=== PATIENT | female | born 1940 | race Caucasian/White ===

== ENCOUNTER → 2016-06-05 | Outpatient (CLI) | payer MEDICARE, BC | LOC: MW.CHFP 08:00 | CPT/HCPCS: G0463 ==

== ENCOUNTER → 2016-06-13 | Outpatient (CLI) | payer MEDICARE, BC ==
--- NOTE | 2016-06-17 10:59 | CR ---
EXAM DATE: 06/13/16 PATIENT'S AGE: 76 Patient: ANNETTA SY Facility: [place], [place] Site . Site : 1940 Study: XRay Chest [id number]/9/2017 3:36:15 PM Ordering Physician: Jessenia Cruz Final Report: HISTORY: Cough. Findings: PA and lateral chest the breasts are compared with 09 January 2016. There is stable mild elevation right hemidiaphragm. The cardiac silhouette is normal. No cephalization. No consolidation or pleural effusion is seen. Peridiscal spurring seen within thoracic spine. Impression: 1. Stable mild elevation of right hemidiaphragm. 2. No acute cardiopulmonary disease or infiltrate. Dictated by Alicia Benitez MD @ Jun 14 2016 11:41PM (Electronic Signature) Report Signed by Proxy and Original Signed Document filed in the Medical Record. VIK
== END ==
LOC: MW.CHOBGYN 15:01
PROVIDERS: ATTEND Nurse Practitioner Women's Health
DX: R05 Cough (principal); J18.1 Lobar pneumonia, unspecified organism
CPT/HCPCS: 36415; 71020; 71020-26; 85025; 87070; 87205; 87804; 99214

== ENCOUNTER → 2016-06-18 | Outpatient (CLI) | payer MEDICARE, BC ==
--- NOTE | 2016-06-20 11:49 | MY ---
EXAMINATION: Left digital mammography utilizing CAD with targeted ultrasound. HISTORY: Cyst, pain. Comparison dated 09/01/2015. FINDINGS: There is a subpectoral silicone implant noted. There is no abnormal mass or calcification identified. No skin thickening. No focal irregularity within the region of concern. There is a lymp h node within the upper outer quadrant near the region of concern, otherwise unremarkable. There are a few cystic collections noted within the upper outer quadrant, however, these appear subcapsular. No suspicious abnormality identified. IMPRESSION: BI-RADS category II - Benign finding. Continued screening according to ACR-ACS guideli patti suggested. THE FALSE-NEGATIVE RATE OF MAMMOGRAM IS APPROXIMATELY 10%. MANAGEMENT OF A PALPABLE ABNORMALITY MUST BE BASED UPON CLINICAL GROUNDS. SENSITIVITY FOR DETECTION OF ABNORMALITIES IN DENSE BREASTS IS LOW. NOTE: A letter will be sent to the patient regarding findings. [facility] -- [place] Ortega [phone] - FAX [phone]
--- NOTE | 2016-06-21 20:08 | US ---
EXAMINATION: Left digital mammography utilizing CAD with targeted ultrasound. HISTORY: Cyst, pain. Comparison dated 09/01/2015. FINDINGS: There is a subpectoral silicone implant noted. There is no abnormal mass or calcification identified. No skin thickening. No focal irregularity within the region of concern. There is a lymp h node within the upper outer quadrant near the region of concern, otherwise unremarkable. There are a few cystic collections noted within the upper outer quadrant, however, these appear subcapsular. No suspicious abnormality identified. IMPRESSION: BI-RADS category II - Benign finding. Continued screening according to ACR-ACS guideli patti suggested. THE FALSE-NEGATIVE RATE OF MAMMOGRAM IS APPROXIMATELY 10%. MANAGEMENT OF A PALPABLE ABNORMALITY MUST BE BASED UPON CLINICAL GROUNDS. SENSITIVITY FOR DETECTION OF ABNORMALITIES IN DENSE BREASTS IS LOW. NOTE: A letter will be sent to the patient regarding findings. [facility] -- [place] [phone] - FAX [phone]
== END ==
LOC: MW.MAM 13:08
PROVIDERS: ATTEND Emergency Medicine
DX: N60.02 Solitary cyst of left breast (principal); N64.4 Mastodynia
CPT/HCPCS: 76641; G0206

== ENCOUNTER → 2016-07-24 | Outpatient (CLI) | payer MEDICARE, BC | END | disposition home or self-care (01) | LOC: MW.LAB 08:36 | PROVIDERS: ATTEND Internal Medicine Interventional Cardiology | DX: E78.5 Hyperlipidemia, unspecified (principal); R82.90 Unspecified abnormal findings in urine | CPT/HCPCS: 36415; 80061; 81001; 87086 ==

== ENCOUNTER → 2016-07-24 | Outpatient (CLI) | payer MEDICARE, BC | END | disposition home or self-care (01) | LOC: MW.CHFP 09:46 | PROVIDERS: ATTEND Family Medicine | DX: R82.90 Unspecified abnormal findings in urine (principal) | CPT/HCPCS: 81001; 87086 ==

== ENCOUNTER → 2016-08-13 | Outpatient (CLI) | payer MEDICARE, BC ==
--- NOTE | 2016-08-13 08:42 | PCM.PRNOTE ---
- Free Text/Narrative Note: Lexiscan Indication chest pain Patient was supervised today during infusion portion of the stress test. The patient received Regadenoson 0.4 mg IV and nuclear agent using standard protocol. Sestamibi Tm99 25 Mci was gievn afterwards Baseline blood pressure is 157/80 with a heart rate 65 EKG sinus rhythm without ST abnormalities Vital signs at injection: Peak blood pressure 157/74 with a heart rate of 78 Vital signs at 4 minutes post injection: Peak blood pressure 156/68 with a heart rate of 73 EKG sinus rhythm without further ST changes Patient complains of mild nausea spontaneously resolved Adverse effects from Ene scan none Test done due to end of protocol Impression 1. electrocardiographically nondiagnostic for ischemia due to chemical protocol 2. nuclear imaging pending
--- NOTE | 2016-08-13 11:18 | NM ---
EXAMINATION: Nuclear medicine myocardial perfusion study HISTORY: Coronary artery disease. PROCEDURE: Following intravenous administration of 0.4 mg of Lexiscan and 27.5 mCi of technetium 99m sestamib i, stress and rest SPECT images including gating imaging was performed. FINDINGS: Stress and rest myocardial SPECT images demonstrates a trace decreased perfusion along the anterior wall, midportion. This most likely represents breast attenuation artifact. Review of gated images demonstrates normal wall motion, contractility and wall thickening. The left ventricular ejection fraction is 67 %. The left ventricular chamber size is normal. IMPRESSION: 1. No definite evidence of myocardial ischemia. 2. Normal ventricular chamber size and function with ejection fraction of 67 %.
== END ==
LOC: MW.NM 08:04
PROVIDERS: ATTEND Internal Medicine Interventional Cardiology
DX: I25.10 Atherosclerotic heart disease of native coronary artery without angina pectoris (principal); Z13.6 Encounter for screening for cardiovascular disorders
CPT/HCPCS: 78451; 93017; A9500; J2785

== ENCOUNTER 2017-06-15 06:06 | Observation (INO) | payer MEDICARE, BC ==
[2017-06-15] MEDS ORDERED: Sodium Chloride 0.9% 2.5 ML Syringe FLUSH PRN (06:10)
[2017-06-15] MEDS ORDERED: Sodium Chloride 0.9% 10 ML Syringe FLUSH PRN (06:10)
--- NOTE | 2017-06-15 06:11 | EDM.PDOC ---
ED HPI GENERAL MEDICAL PROBLEM - General Chief Complaint: Syncope Stated Complaint: AMBULANCE Time Seen by Provider: 06/15/17 06:09 - History of Present Illness INITIAL COMMENTS - FREE TEXT/NARRATIVE: HISTORY AND PHYSICAL: History of present illness: The patient is a 77-year-old female who follows in our family practice clinic and has a history of skn-sqodsim-oexbyddlm diabetes hypercholesterolemia hypertension coronary artery disease with a stent 10 years ago, double mastectomy and follows in our family practice clinic; she presents via EMS after having diarrhea all day yesterday and having a brief syncopal event this morning. The patient states that yesterday she had diarrhea all day which is watery but not black or bloody and she is not very good with her hydration as she drinks soda and tea along with water. She said she went to bed and she woke feeling like her heart was beating very fast and it was pounding and that only lasted several minutes. After this stopped she got up to go into the other room of the house and felt lightheaded and generalized weakness and the next thing she recalls is being on the floor on her back. She says she was not unconscious for a long period of time and when she woke she did not have any head neck or back pain although she does say that she has chronic back pain which is not new or different tonight. She doesn't have any abdominal pain she's not nauseated and she's had no vomiting. She's had no fever chills but has had a cough. Currently in the ED she feels very drained and weak and she felt the same way when she got up and felt lightheaded. Patient currently denies any extremity complaints and has no neurosensory changes in her extremities. She currently says she is not feeling like her heart is beating fast and she is currently not having any chest pain she just feels weak. She says that along with the diarrhea she'll get some cramping prior to these episodes. Review of systems: As per history of present illness and below otherwise all systems reviewed and negative. Past medical history: As per history of present illness and as reviewed below otherwise noncontributory. Surgical history: As per history of present illness and as reviewed below otherwise noncontributory. Social history: No reported history of drug or alcohol abuse. Family history: As per history of present illness and as reviewed below otherwise noncontributory. Physical exam: Gen.: Well-developed well-nourished female who is nontoxic and moves all extremities easily and speaks clearly and moves easily in the bed. Vital signs are noted by me. HEENT: Atraumatic, normocephalic, pupils reactive, negative for conjunctival pallor or scleral icterus, mucous membranes tacky, throat clear, neck supple, nontender, trachea midline. There are no scalp defects or deformities and no soft tissue swelling is appreciated. There are no midline step-offs tenderness defects of the cervical spine Lungs: Clear to auscultation, breath sounds equal bilaterally, chest nontender. Heart: S1S2, regular, negative for clicks, rubs, or JVD. Abdomen: Soft, nondistended, nontender. Negative for masses or hepatosplenomegaly. There is a small soft umbilical hernia which is nontender Negative for costovertebral tenderness. Bowel sounds are slightly hyperactive Pelvis: Stable nontender. There is no lateral hip tenderness and the patient has full range of motion at her hips. Genitourinary: Deferred. Rectal: Deferred. Extremities: Atraumatic with full range of motion of all extremities with the exception of the dorsal aspect of the left third digit where there is a superficial laceration/abrasion seen without bony deformity. The patient is able to range of motion of this digit without deficits. The legs are, negative for cords or calf pain. Neurovascular unremarkable. Neuro: Awake, alert, oriented. Cranial nerves II through XII unremarkable. Cerebellum unremarkable. Motor and sensory unremarkable throughout. Exam nonfocal. Skin: There is no diaphoresis turgor is normal and there is no gross evidence of any rashes or lesions Back: There are no midline step-offs tenderness to the thoracic or lumbar spine no posterior rib or posterior pelvis tenderness and no visible evidence of any soft tissue injuries such as abrasions ecchymosis or erythema. Diagnostics: EKG CBC CMP troponin magnesium level UA TSH influenza swab chest x-ray CT scan of the head If The patient produces a stool I will send it to the lab for study Therapeutics: IV O2 monitor gentle IV fluids wound care to finger 0637: Case was discussed with our hospitalist Dr. Redding. He accepts the patient for observation admission and he is aware that the imaging and labs are pending. He is coming in to the hospital to see another patient so he will swing by and see this patient but he agrees to the admission. The patient was also made aware that the plan would be for admission despite testing results. She is comfortable with this care plan. 0700: Case was endorsed to Dr. Hoskins to follow up the pending lab tests and imaging and disposition the patient as an observation pending those testing results. She will recontact Dr. Redding without any changes in this care plan Impression: Brief syncopal event, diarrhea Definitive disposition and diagnosis as appropriate pending reevaluation and review of above. - Related Data Allergies Allergy/AdvReac Type Severity Reaction Status Date / Time cyclobenzaprine HCl Allergy Giddiness Verified 06/15/17 06:16 [From Flexeril] Adhesive from 'rubber type Allergy Redness Uncoded 06/15/17 06:16 bandages Home Meds: Home Meds Atenolol/Chlorthalidone [Atenolol-Chlorthalidone 50-25] 1 tab PO DAILY 03/08/15 [History] FLUoxetine HCl [Fluoxetine HCl] 1 tab PO DAILY 03/08/15 [History] Omeprazole [Prilosec] 1 tab PO DAILY 03/08/15 [History] Potassium Chloride [Klor-Con M20] 10 tab PO DAILY 03/08/15 [History] Simvastatin 1 tab PO DAILY 03/08/15 [History] metFORMIN [Glucophage] 1 tab PO BIDMEALS 03/08/15 [History] Lisinopril 0 mg PO DAILY 06/15/17 [History] Past Medical History Other Respiratory History: History of smoking, Chronic sinusitis, have had Bronchitis' Other Gastrointestinal History: GERD been better recently, Hx: fatty liver non- alchol related Other Musculoskeletal History: Chronic low back pain Other Neuro History: Sinus related headaches - Past Surgical History Other Musculoskeletal Surgeries/Procedures:: Bilateral total knee replacements, hx: BAck surgery Other Oncologic Surgeries/Procedures: Darci breast mastectomy, darci breast reconstruction with implants Social & Family History - Tobacco Use Smoking Status *Q: Former Smoker - Recreational Drug Use Recreational Drug Use: No Drug Use in Last 12 Months: No ED ROS GENERAL - Review of Systems Review Of Systems: ROS reveals no pertinent complaints other than HPI. ED EXAM, GENERAL - Physical Exam Exam: See Below (See dictation) Course - Vital Signs Last Recorded V/S: Last Vital Signs Temp 36.4 C 06/15/17 06:06 Pulse 86 06/15/17 06:29 Resp 19 06/15/17 06:29 BP 144/71 H 06/15/17 06:29 Pulse Ox 96 06/15/17 06:29 - Orders/Labs/Meds Orders: Active Orders 24 hr Category Date Time Status Patient Status [ADT] Stat ADT 06/15/17 06:36 Active Cardiac Monitoring [RC] . DIRECTED Care 06/15/17 06:09 Active Communication Order [RC] STAT Care 06/15/17 06:10 Active Communication Order [RC] STAT Care 06/15/17 06:11 Active EKG Documentation Completion [RC] STAT Care 06/15/17 06:09 Active Oxygen Therapy, ED [RC] ASDIRECTED Care 06/15/17 06:09 Active Pulse Oximetry [RC] ASDIRECTED Care 06/15/17 06:09 Active Chest 1V Frontal [CR] Stat Exams 06/15/17 06:10 Ordered Head wo Cont [CT] Stat Exams 06/15/17 06:10 Taken COMPREHENSIVE METABOLIC PN,CMP [CHEM] Stat Lab 06/15/17 06:21 Received MAGNESIUM [CHEM] Stat Lab 06/15/17 06:21 Received TROPONIN I [CHEM] Stat Lab 06/15/17 06:21 Received TSH [CHEM] Stat Lab 06/15/17 06:21 Received UA W/MICROSCOPIC [URIN] Stat Lab 06/15/17 06:10 Ordered Sodium Chloride 0.9% [Normal Saline] 500 ml Med 06/15/17 06:15 Active IV STAT Sodium Chloride 0.9% [Saline Flush] Med 06/15/17 06:10 Active 10 ml FLUSH ASDIRECTED PRN Sodium Chloride 0.9% [Saline Flush] Med 06/15/17 06:10 Active 2.5 ml FLUSH ASDIRECTED PRN Saline Lock Insert [OM.PC] Stat Oth 06/15/17 06:09 Ordered Medication Orders Sodium Chloride (Normal Saline) 500 mls @ 999 mls/hr IV STAT BEN Last Admin: 06/15/17 06:21 Dose: 999 mls/hr Sodium Chloride (Saline Flush) 10 ml FLUSH ASDIRECTED PRN PRN Reason: Keep Vein Open Sodium Chloride (Saline Flush) 2.5 ml FLUSH ASDIRECTED PRN PRN Reason: Keep Vein Open Labs: Laboratory Tests 06/15/17 Range/Units 06:21 WBC 9.78 (4.0-11.0) K/uL RBC 4.61 (4.30-5.90) M/uL Hgb 13.5 (12.0-16.0) g/dL Hct 41.9 (36.0-46.0) % MCV 90.9 (80.0-98.0) fL MCH 29.3 (27.0-32.0) pg MCHC 32.2 (31.0-37.0) g/dL RDW Std Deviation 46.6 (28.0-62.0) fl RDW Coeff of Daily 14 (11.0-15.0) % Plt Count 235 (150-400) K/uL MPV 10.20 (7.40-12.00) fL Neut % (Auto) 66.9 (48.0-80.0) % Lymph % (Auto) 25.2 (16.0-40.0) % [place] % (Auto) 5.8 (0.0-15.0) % Eos % (Auto) 1.6 (0.0-7.0) % Baso % (Auto) 0.5 (0.0-1.5) % Neut # (Auto) 6.5 H (1.4-5.7) K/uL Lymph # (Auto) 2.5 H (0.6-2.4) K/uL [place] # (Auto) 0.6 (0.0-0.8) K/uL Eos # (Auto) 0.2 (0.0-0.7) K/uL Baso # (Auto) 0.1 (0.0-0.1) K/uL Nucleated RBC % 0.0 /100WBC Nucleated RBCs # 0 K/uL Meds: Medications Generic Name Dose Route Start Last Admin Trade Name Freq PRN Reason Stop Dose Admin Sodium Chloride 500 mls @ 999 mls/hr 06/15/17 06:15 06/15/17 06:21 Normal Saline IV 999 mls/hr STAT BEN Administration Sodium Chloride 10 ml 06/15/17 06:10 Saline Flush FLUSH ASDIRECTED PRN Keep Vein Open Sodium Chloride 2.5 ml 06/15/17 06:10 Saline Flush FLUSH ASDIRECTED PRN Keep Vein Open Discontinued Medications Generic Name Dose Route Start Last Admin Trade Name Freq PRN Reason Stop Dose Admin Bacitracin 1 dose 06/15/17 06:12 06/15/17 06:24 Bacitracin Oint 1 Gm TOP 06/15/17 06:13 1 dose ONETIME ONE Administration Departure - Departure Time of Disposition: 07:15 Disposition: Refer to Observation Condition: Good Clinical Impression: Syncope Qualifiers: Syncope type: unspecified Qualified Code(s): R55 - Syncope and collapse Diarrhea Qualifiers: Diarrhea type: unspecified type Qualified Code(s): R19.7 - Diarrhea, unspecified - Discharge Information Forms: ED Department Discharge - My Orders Last 24 Hours: My Active Orders 06/15/17 06:09 Cardiac Monitoring [RC] . DIRECTED EKG Documentation Completion [RC] STAT Oxygen Therapy, ED [RC] ASDIRECTED Pulse Oximetry [RC] ASDIRECTED Saline Lock Insert [OM.PC] Stat 06/15/17 06:10 Communication Order [RC] STAT Chest 1V Frontal [CR] Stat Head wo Cont [CT] Stat UA W/MICROSCOPIC [URIN] Stat Sodium Chloride 0.9% [Saline Flush] 10 ml FLUSH ASDIRECTED PRN Sodium Chloride 0.9% [Saline Flush] 2.5 ml FLUSH ASDIRECTED PRN 06/15/17 06:11 Communication Order [RC] STAT 06/15/17 06:15 Sodium Chloride 0.9% [Normal Saline] 500 ml IV STAT 06/15/17 06:21 COMPREHENSIVE METABOLIC PN,CMP [CHEM] Stat MAGNESIUM [CHEM] Stat TROPONIN I [CHEM] Stat TSH [CHEM] Stat 06/15/17 06:36 Patient Status [ADT] Stat - Assessment/Plan Last 24 Hours: My Active Orders 06/15/17 06:09 Cardiac Monitoring [RC] . DIRECTED EKG Documentation Completion [RC] STAT Oxygen Therapy, ED [RC] ASDIRECTED Pulse Oximetry [RC] ASDIRECTED Saline Lock Insert [OM.PC] Stat 06/15/17 06:10 Communication Order [RC] STAT Chest 1V Frontal [CR] Stat Head wo Cont [CT] Stat UA W/MICROSCOPIC [URIN] Stat Sodium Chloride 0.9% [Saline Flush] 10 ml FLUSH ASDIRECTED PRN Sodium Chloride 0.9% [Saline Flush] 2.5 ml FLUSH ASDIRECTED PRN 06/15/17 06:11 Communication Order [RC] STAT 06/15/17 06:15 Sodium Chloride 0.9% [Normal Saline] 500 ml IV STAT 06/15/17 06:21 COMPREHENSIVE METABOLIC PN,CMP [CHEM] Stat MAGNESIUM [CHEM] Stat TROPONIN I [CHEM] Stat TSH [CHEM] Stat 06/15/17 06:36 Patient Status [ADT] Stat
[2017-06-15] MEDS ORDERED: Bacitracin Oint 1 GM U/D Packet TOP ONE (06:12)
[2017-06-15] MEDS ORDERED: Sodium Chloride 0.9% 500 ML IV SCH (06:15)
[2017-06-15 07:21] LABS: CHLORIDE,CL 104 mmol/L (98-107); SODIUM,NA 141 mmol/L (136-145)
--- NOTE | 2017-06-15 07:43 | PCM.HP ---
H&P History of Present Illness - General Date of Service: 06/15/17 Admit Problem/Dx: Admission Diagnosis/Problem Admission Diagnosis/Problem Syncope Source of Information: Patient History Limitations: Reports: No Limitations - History of Present Illness Initial Comments - Free Text/Narative: 77-year-old female presenting to the emergency department by EMS after a unwitnessed syncopal episode with past medical history of hypertension, hyperlipidemia, CAD stent 10 years ago, GERD, bilateral masectomy and depression. She states that she had diarrhea throughout the day yesterday and in general felt fatigued with some lightheadedness. At approximately 0500 this morning she woke with what she feels was her "heart racing". She got up to check her blood sugar thinking that she may be hypoglycemic. States that her blood sugar was fine but then on returning to her bed "blacked out". She woke up on the floor feeling somewhat disoriented and weak. She subsequently called ambulance to be taken to the emergency department for further assessment. She denies any chest pain, palpitations, or shortness of breath prior to or after the syncopal event. Event was unwitnessed and she states that she did not notice any significant focal neurologic deficits other than just generalized weakness. She denies any nausea, vomiting, fever, chills, sore throat, abdominal pain, leg pain or swelling. Patient does have a history of hypertension, hyperlipidemia and coronary artery disease with stent placed 10 years ago. She is not on any blood thinners. She has never had similar episode in the past and has no history of TIA, stroke, or seizures. Patient [place]. Emergency department: CBC, CMP, and initial troponin were unremarkable. Magnesium was low at 1.3 and TSH was elevated at 7.54. She denies any history of hypothyroidism. Influenza was negative and urinalysis as well as chest x-ray were unremarkable. CT head unremarkable. EKG showed no acute signs of ischemia. Patient was admitted for syncope. - Related Data Allergies/Adverse Reactions: Allergies Allergy/AdvReac Type Severity Reaction Status Date / Time cyclobenzaprine HCl Allergy Giddiness Verified 06/15/17 06:16 [From Flexeril] Adhesive from 'rubber type Allergy Redness Uncoded 06/15/17 06:16 bandages Home Medications: Home Meds Atenolol/Chlorthalidone [Atenolol-Chlorthalidone 50-25] 1 tab PO DAILY 03/08/15 [History] FLUoxetine HCl [Fluoxetine HCl] 1 tab PO DAILY 03/08/15 [History] Omeprazole [Prilosec] 1 tab PO DAILY 03/08/15 [History] Potassium Chloride [Klor-Con M20] 10 tab PO DAILY 03/08/15 [History] Simvastatin 1 tab PO DAILY 03/08/15 [History] metFORMIN [Glucophage] 1 tab PO BIDMEALS 03/08/15 [History] Lisinopril 0 mg PO DAILY 06/15/17 [History] Past Medical History HEENT History: Reports: Cataract, Impaired Vision Cardiovascular History: Reports: Stents Other Respiratory History: History of smoking, Chronic sinusitis, have had Bronchitis' Other Gastrointestinal History: GERD been better recently, Hx: fatty liver non- alchol related CARD SETTER History: Reports: , Other (See Below) Other OB/BYN History: mastectomy Other Musculoskeletal History: Chronic low back pain Other Neuro History: Sinus related headaches Endocrine/Metabolic History: Reports: Diabetes, Type II - Past Surgical History Other Musculoskeletal Surgeries/Procedures:: Bilateral total knee replacements, hx: BAck surgery Other Oncologic Surgeries/Procedures: Darci breast mastectomy, darci breast reconstruction with implants Social & Family History - Family History Family Medical History: Noncontributory - Tobacco Use Smoking Status *Q: Former Smoker - Recreational Drug Use Recreational Drug Use: No Drug Use in Last 12 Months: No H&P Review of Systems - Review of Systems: Review Of Systems: See Below General: Denies: Fever, Chills, Weakness, Fatigue HEENT: Denies: Headaches, Sore Throat Pulmonary: Denies: Shortness of Breath, Pleuritic Chest Pain, Cough Cardiovascular: Denies: Chest Pain, Palpitations, Edema Gastrointestinal: Reports: Diarrhea. Denies: Abdominal Pain, Black Stool, Bloody Stool, Nausea, Vomiting Genitourinary: Denies: Dysuria, Hematuria Musculoskeletal: Denies: Neck Pain, Leg Pain Skin: Denies: Cyanosis Psychiatric: Reports: Depression. Denies: Confusion Neurological: Denies: Confusion, Dizziness, Headache Exam - Exam Exam: See Below - Vital Signs Vital Signs: Last Vital Signs Temp 97.6 F 06/15/17 06:06 Pulse 85 06/15/17 07:02 Resp 16 06/15/17 07:02 BP 154/80 H 06/15/17 07:02 Pulse Ox 94 L 06/15/17 07:02 Weight: 97.522 kg - Exam Quality Assessment: DVT Prophylaxis General: Alert, Oriented, Cooperative HEENT: Conjunctiva Clear, EACs Clear, EOMI, Hearing Intact, Mucosa Moist & [place] , Nares Patent, Normal Nasal Septum, Posterior Pharynx Clear, PERRLA Neck: Supple, Trachea Midline, 2 Lungs: Clear to Auscultation, Normal Respiratory Effort Cardiovascular: Regular Rate, Regular Rhythm, Normal S1, Normal S2, Systolic Murmur GI/Abdominal Exam: Normal Bowel Sounds, Soft, Non-Tender, No Organomegaly, No Distention (Female) Exam: Deferred Rectal (Female) Exam: Deferred Back Exam: Normal Inspection Extremities: Normal Inspection, Non-Tender, No Pedal Edema, Normal Capillary Refill Peripheral Pulses: 2+: Radial (L), Radial (R), Posterior Tibial (L), Posterior Tibial (R), Dorsalis Pedis (L), Dorsalis Pedis (R) Skin: Warm, Dry, Intact Neurological: Cranial Nerves Intact Neuro Extensive - Mental Status: Alert, Oriented x3, Normal Mood/Affect, Normal Cognition Neuro Extensive - Motor, Sensory, Reflexes: CN II-XII Intact Psychiatric: Alert, Normal Affect, Normal Mood - Patient Data Lab Results Last 24 hrs: Laboratory Results - last 24 hr 06/15/17 Range/Units 06:48 Urine Color YELLOW Urine Appearance CLEAR Urine pH 5.5 (5.0-8.0) Ur Specific [place] 1.025 (1.001-1.035) Urine Protein NEGATIVE (NEGATIVE) mg/dL Urine Glucose (UA) NEGATIVE (NEGATIVE) mg/dL Urine Ketones NEGATIVE (NEGATIVE) mg/dL Urine Occult Blood TRACE-INTACT (NEGATIVE) Urine Nitrite NEGATIVE (NEGATIVE) Urine Bilirubin NEGATIVE (NEGATIVE) Urine Urobilinogen 0.2 (<2.0) EU/dL Ur Leukocyte Esterase TRACE (NEGATIVE) Urine RBC 0-3 (0-2/HPF) Urine WBC 1-3 (0-5/HPF) Ur Epithelial Cells OCCASIONAL (NONE-FEW) Urine Bacteria FEW (NEGATIVE) Result Diagrams: 06/15/17 06:21 06/15/17 06:21 *Q Meaningful Use (ADM) - VTE *Q VTE Criteria *Q: - Stroke *Q Stroke Criteria *Q: - AMI *Q AMI Criteria *Q: - Problem List (1) Presence of stent in coronary artery in patient with coronary artery disease SNOMED Code(s): 431038479 ICD Code: I25.10 - ATHSCL HEART DISEASE OF [place] CORONARY ARTERY W/O ANG PCTRS; Z95.5 - PRESENCE OF CORONARY ANGIOPLASTY IMPLANT AND GRAFT Status: Chronic Priority: Medium Current Visit: Yes (2) HTN (hypertension) SNOMED Code(s): 44077096 ICD Code: I10 - ESSENTIAL (PRIMARY) HYPERTENSION Status: Chronic Priority : Medium Current Visit: Yes Qualifiers: Hypertension type: unspecified Qualified Code(s): I10 - Essential (primary ) hypertension (3) HLD (hyperlipidemia) SNOMED Code(s): 50765589 ICD Code: E78.5 - HYPERLIPIDEMIA, UNSPECIFIED Status: Chronic Priority: Medium Current Visit: Yes Qualifiers: Hyperlipidemia type: unspecified Qualified Code(s): E78.5 - Hyperlipidemia , unspecified (4) Type II diabetes mellitus SNOMED Code(s): 80106846 ICD Code: E11.9 - TYPE 2 DIABETES MELLITUS WITHOUT COMPLICATIONS Status: Chronic Priority: Low Current Visit: Yes Qualifiers: Diabetes mellitus complication status: without complication (5) GERD (gastroesophageal reflux disease) SNOMED Code(s): 813872301 ICD Code: K21.9 - GASTRO-ESOPHAGEAL REFLUX DISEASE WITHOUT ESOPHAGITIS Status: Chronic Priority: Low Current Visit: Yes Qualifiers: Esophagitis presence: esophagitis presence not specified Qualified Code(s) : K21.9 - Gastro-esophageal reflux disease without esophagitis (6) Diarrhea SNOMED Code(s): 91492019 ICD Code: R19.7 - DIARRHEA, UNSPECIFIED Status: Acute Priority: High Current Visit: Yes Qualifiers: Diarrhea type: unspecified type Qualified Code(s): R19.7 - Diarrhea, unspecified (7) Syncope SNOMED Code(s): 475438821 ICD Code: R55 - SYNCOPE AND COLLAPSE Status: Acute Priority: High Current Visit: Yes Qualifiers: Syncope type: unspecified Qualified Code(s): R55 - Syncope and collapse Problem List Initiated/Reviewed/Updated: Yes Orders Last 24hrs: Medication Orders Sodium Chloride (Normal Saline) 500 mls @ 999 mls/hr IV STAT BEN Last Admin: 06/15/17 06:21 Dose: 999 mls/hr Sodium Chloride (Saline Flush) 10 ml FLUSH ASDIRECTED PRN PRN Reason: Keep Vein Open Sodium Chloride (Saline Flush) 2.5 ml FLUSH ASDIRECTED PRN PRN Reason: Keep Vein Open Assessment/Plan Comment:: 77-year-old female admitted 06/15/17 for syncopal episode with past medical history of CAD with stent, hypertension, hyperlipidemia, type 2 diabetes, bilateral masectomy, GERD, and depression. Syncopal episode: We'll get orthostatic blood pressures. CT head and EKG were unremarkable. Is most likely related to volume status as she has had diarrhea 1 day and was volume depleted. Will monitor overnight on telemetry. Have also ordered stool studies. Hypomagnesemia: Replaced with 4 mg IV Mag Elevated TSH: No history of hypothyroidism. 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 Hypertension/hyperlipidemia: Currently well controlled we'll resume her meds. Type 2 diabetes: We'll get hemoglobin A1c to assess status as well as place patient on low-dose insulin sliding scale as she only takes metformin. GERD: Currently well controlled continue home meds Depression: Currently well controlled continue home meds. VTE proph: Heparin, SCD
[2017-06-15] MEDS ORDERED: Ondansetron 4 MG/2 ML SDV IVPUSH PRN (07:50)
[2017-06-15] MEDS ORDERED: Magnesium Sulfate/Water 4 GM in Premix Bag 1 BAG IV ONE (07:50)
[2017-06-15] MEDS ORDERED: Acetaminophen 325 MG Tab PO PRN (07:50)
[2017-06-15] MEDS ORDERED: Morphine 2 MG/ML Syringe IVPUSH PRN (07:50)
[2017-06-15] MEDS ORDERED: Ondansetron 4 MG Tab.DIS PO PRN (07:50)
[2017-06-15] MEDS: FLUoxetine 20 MG Cap PO SCH (10:21)
[2017-06-15] MEDS: Chlorthalidone 25 MG Tab PO SCH (10:22)
[2017-06-15] MEDS: Potassium Chloride 20 MEQ Tab.ER PO SCH (10:23)
[2017-06-15] MEDS: Atenolol 50 MG Tab PO SCH (10:43)
[2017-06-15] MEDS: Omeprazole 20 MG Cap.CR PO SCH (10:51)
[2017-06-15] MEDS: Heparin Sodium 5,000 Units/ML Vial SUBCUT SCH ×2 (10:52→20:05)
[2017-06-15] MEDS: Insulin Aspart 100 Units/ML 3 ML Pen SUBCUT SCH ×2 (12:31→17:56)
[2017-06-15] MEDS: Lactated Ringers 1,000 ML IV SCH ×2 (13:06→21:37)
[2017-06-15] MEDS ORDERED: Simvastatin 40 MG Tab PO SCH (21:00)
[2017-06-16 06:04] LABS: CHLORIDE,CL 106 mmol/L (98-107); SODIUM,NA 141 mmol/L (136-145)
[2017-06-16] MEDS: Lactated Ringers 1,000 ML IV SCH (06:35)
[2017-06-16] MEDS: Omeprazole 20 MG Cap.CR PO SCH (06:36)
[2017-06-16] MEDS: Insulin Aspart 100 Units/ML 3 ML Pen SUBCUT SCH (07:12)
[2017-06-16 08:09] VITALS: BP 151/75
[2017-06-16] MEDS: Heparin Sodium 5,000 Units/ML Vial SUBCUT SCH (09:00)
[2017-06-16] MEDS: FLUoxetine 20 MG Cap PO SCH (09:02)
[2017-06-16] MEDS: Chlorthalidone 25 MG Tab PO SCH (09:03)
[2017-06-16] MEDS: Atenolol 50 MG Tab PO SCH (09:03)
[2017-06-16] MEDS: Potassium Chloride 20 MEQ Tab.ER PO SCH (09:04)
--- NOTE | 2017-06-16 11:56 | PCM.DCSUM1 ---
Discharge Summary - Hospital Course Brief History: 77-year-old female presenting to the emergency department by EMS after a unwitnessed syncopal episode with past medical history of hypertension, hyperlipidemia, CAD stent 10 years ago, GERD, bilateral masectomy and depression. She states that she had diarrhea throughout the day yesterday and in general felt fatigued with some lightheadedness. At approximately 0500 this morning she woke with what she feels was her "heart racing". She got up to check her blood sugar thinking that she may be hypoglycemic. States that her blood sugar was fine but then on returning to her bed "blacked out". She woke up on the floor feeling somewhat disoriented and weak. She subsequently called ambulance to be taken to the emergency department for further assessment. She denies any chest pain, palpitations, or shortness of breath prior to or after the syncopal event. Event was unwitnessed and she states that she did not notice any significant focal neurologic deficits other than just generalized weakness. She denies any nausea, vomiting, fever, chills, sore throat, abdominal pain, leg pain or swelling. Patient does have a history of hypertension, hyperlipidemia and coronary artery disease with stent placed 10 years ago. She is not on any blood thinners. She has never had similar episode in the past and has no history of TIA, stroke, or seizures. Patient does live alone in a somewhat remote area. Emergency department: CBC, CMP, and initial troponin were unremarkable. Magnesium was low at 1.3 and TSH was elevated at 7.54. She denies any history of hypothyroidism. Influenza was negative and urinalysis as well as chest x-ray were unremarkable. CT head unremarkable. EKG showed no acute signs of ischemia. Patient was admitted for syncope. - Discharge Data Discharge Date: 06/16/17 Discharge Disposition: Home, Self-Care 01 Condition: Good - Discharge Diagnosis/Problem(s) (1) Diarrhea SNOMED Code(s): 35027500 ICD Code: R19.7 - DIARRHEA, UNSPECIFIED Status: Resolved Priority: High Qualifiers: Diarrhea type: unspecified type Qualified Code(s): R19.7 - Diarrhea, unspecified (2) Syncope SNOMED Code(s): 508837161 ICD Code: R55 - SYNCOPE AND COLLAPSE Status: Resolved Priority: High Qualifiers: Syncope type: unspecified Qualified Code(s): R55 - Syncope and collapse (3) GERD (gastroesophageal reflux disease) SNOMED Code(s): 150475948 ICD Code: K21.9 - GASTRO-ESOPHAGEAL REFLUX DISEASE WITHOUT ESOPHAGITIS Status: Chronic Priority: Low Qualifiers: Esophagitis presence: esophagitis presence not specified Qualified Code(s) : K21.9 - Gastro-esophageal reflux disease without esophagitis (4) HLD (hyperlipidemia) SNOMED Code(s): 28079151 ICD Code: E78.5 - HYPERLIPIDEMIA, UNSPECIFIED Status: Chronic Priority: Medium Qualifiers: Hyperlipidemia type: unspecified Qualified Code(s): E78.5 - Hyperlipidemia , unspecified (5) HTN (hypertension) SNOMED Code(s): 24179800 ICD Code: I10 - ESSENTIAL (PRIMARY) HYPERTENSION Status: Chronic Priority : Medium Qualifiers: Hypertension type: unspecified Qualified Code(s): I10 - Essential (primary ) hypertension (6) Presence of stent in coronary artery in patient with coronary artery disease SNOMED Code(s): 294728362 ICD Code: I25.10 - ATHSCL HEART DISEASE OF [place] CORONARY ARTERY W/O ANG PCTRS; Z95.5 - PRESENCE OF CORONARY ANGIOPLASTY IMPLANT AND GRAFT Status: Chronic Priority: Medium (7) Type II diabetes mellitus SNOMED Code(s): 95823140 ICD Code: E11.9 - TYPE 2 DIABETES MELLITUS WITHOUT COMPLICATIONS Status: Chronic Priority: Low Qualifiers: Diabetes mellitus complication status: without complication - Patient Instructions Diet: Diabetic Diet, GI Soft/Low Residue/Low Fiber Activity: As Tolerated, No Strenuous Activities, Rest and Relax Today Showering/Bathing: May Shower Notify Provider of: Fever, Increased Pain, Swelling and Redness, Drainage, Nausea and/or Vomiting - Discharge Plan Home Medications: Home Meds Atenolol/Chlorthalidone [Atenolol-Chlorthalidone 50-25] 1 tab PO DAILY 03/08/15 [History] FLUoxetine HCl [Fluoxetine HCl] 1 tab PO DAILY 03/08/15 [History] Omeprazole [Prilosec] 1 tab PO DAILY 03/08/15 [History] Potassium Chloride [Klor-Con M20] 10 tab PO DAILY 03/08/15 [History] Simvastatin 1 tab PO DAILY 03/08/15 [History] metFORMIN [Glucophage] 1 tab PO BIDMEALS 03/08/15 [History] Lisinopril 0 mg PO DAILY 06/15/17 [History] Patient Handouts: Syncope, [id number] Referrals: Garcia Bull MD [Physician] - 07/11/17 10:00 am (follow up beginning of July) - Discharge Summary/Plan Comment DC Time >30 min.: No Discharge Summary/Plan Comment: Discharge Diagnoses: Syncope- likely secondary to dehydration, resolved Diarrhea- resolved HxCAD Hx Dyslipidemia Hx DM type 2 Usha was admitted and treated with IVFs. Diarrhea has resolved, stool studies have been negative so far. She is eating and keeping fluids down. Labwork has improved today. She is requesting discharge home today. TSH found to be elevated on admission, T3,T4 pending, will leave to PCP to follow up on. She has appointment with PCP beginning of July. She is leaving to her sons this weekend and is gone in [place] for 1 week, then will be back to follow up with PCP. Telemetry negative for arrhythmias during stay. She is feeling much better. She is to return to ED or clinic if concerns should arise. She is to keep bland diet for next few days then slowly advance to regular. She verbalized understanding. No new prescriptions. - General Info Date of Service: 06/16/17 Admission Dx/Problem (Free Text: Admission Diagnosis/Problem Admission Diagnosis/Problem Syncope Subjective Update: Sitting in chair, very eager for discharge home. Feeling much better, no abdominal pain. eating and drinking well. No diarrhea and no lightheadedness, dizziness or palpitations. Functional Status: Reports: Pain Controlled, Tolerating Diet, Ambulating, Urinating - Review of Systems General: Reports: No Symptoms. Denies: Fever, Fatigue, Malaise HEENT: Reports: No Symptoms. Denies: Sore Throat, Rhinitis Pulmonary: Reports: No Symptoms. Denies: Shortness of Breath, Cough, Sputum Cardiovascular: Reports: No Symptoms. Denies: Chest Pain, Dyspnea on Exertion, Lightheadedness Gastrointestinal: Reports: No Symptoms, Flatus. Denies: Abdominal Pain, Constipation, Diarrhea, Nausea, Vomiting Genitourinary: Reports: No Symptoms. Denies: Dysuria, Frequency, Burning, Pain Neurological: Reports: No Symptoms. Denies: Confusion Psychiatric: Reports: No Symptoms. Denies: Confusion - Patient Data Vitals - Most Recent: Last Vital Signs Temp 97.2 F 06/16/17 08:00 Pulse 77 06/16/17 08:00 Resp 16 06/16/17 08:00 BP 151/75 H 06/16/17 08:00 Pulse Ox 96 06/16/17 08:00 Orthostatic Blood Pressure [ 146/65 Standing] Orthostatic Blood Pressure [ 135/61 Sitting] Orthostatic Blood Pressure [ 124/60 Supine] Weight - Most Recent: 97.522 kg I&O - Last 24 hours: Intake & Output 06/15/17 06/16/17 06/16/17 22:59 06:59 14:59 Intake Total 1818 1926 Output Total 1900 1800 Balance -82 126 Lab Results - Last 24 hrs: Laboratory Results - last 24 hr 06/15/17 06/15/17 06/16/17 Range/Units 10:53 15:09 05:00 WBC 6.46 (4.0-11.0) K/uL RBC 4.10 L (4.30-5.90) M/uL Hgb 12.1 (12.0-16.0) g/dL Hct 37.1 (36.0-46.0) % MCV 90.5 (80.0-98.0) fL MCH 29.5 (27.0-32.0) pg MCHC 32.6 (31.0-37.0) g/dL RDW Std Deviation 46.5 (28.0-62.0) fl RDW Coeff of Daily 14 (11.0-15.0) % Plt Count 192 (150-400) K/uL MPV 10.20 (7.40-12.00) fL Neut % (Auto) 59.9 (48.0-80.0) % Lymph % (Auto) 31.7 (16.0-40.0) % Starr % (Auto) 6.5 (0.0-15.0) % Eos % (Auto) 1.4 (0.0-7.0) % Baso % (Auto) 0.5 (0.0-1.5) % Neut # (Auto) 3.9 (1.4-5.7) K/uL Lymph # (Auto) 2.1 (0.6-2.4) K/uL Starr # (Auto) 0.4 (0.0-0.8) K/uL Eos # (Auto) 0.1 (0.0-0.7) K/uL Baso # (Auto) 0.0 (0.0-0.1) K/uL Nucleated RBC % 0.0 /100WBC Nucleated RBCs # 0 K/uL Sodium (136-145) mmol/L Potassium (3.5-5.1) mmol/L Chloride (98-107) mmol/L Carbon Dioxide (21.0-32.0) mmol/L BUN (7.0-18.0) mg/dL Creatinine (0.6-1.0) mg/dL Est Cr Clr Drug Dosing mL/min Estimated GFR (MDRD) ml/min Glucose (74-106) mg/dL POC Glucose 122 H 166 H (60-110) mg/dL Hemoglobin A1c (4.5-6.2) % Calcium (8.5-10.1) mg/dL Phosphorus (2.6-4.7) mg/dL Magnesium (1.5-2.0) mg/dL 06/16/17 06/16/17 06/16/17 Range/Units 05:00 05:00 06:38 WBC (4.0-11.0) K/uL RBC (4.30-5.90) M/uL Hgb (12.0-16.0) g/dL Hct (36.0-46.0) % MCV (80.0-98.0) fL MCH (27.0-32.0) pg MCHC (31.0-37.0) g/dL RDW Std Deviation (28.0-62.0) fl RDW Coeff of Daily (11.0-15.0) % Plt Count (150-400) K/uL MPV (7.40-12.00) fL Neut % (Auto) (48.0-80.0) % Lymph % (Auto) (16.0-40.0) % Starr % (Auto) (0.0-15.0) % Eos % (Auto) (0.0-7.0) % Baso % (Auto) (0.0-1.5) % Neut # (Auto) (1.4-5.7) K/uL Lymph # (Auto) (0.6-2.4) K/uL Starr # (Auto) (0.0-0.8) K/uL Eos # (Auto) (0.0-0.7) K/uL Baso # (Auto) (0.0-0.1) K/uL Nucleated RBC % /100WBC Nucleated RBCs # K/uL Sodium 141 (136-145) mmol/L Potassium 3.6 (3.5-5.1) mmol/L Chloride 106 (98-107) mmol/L Carbon Dioxide 24.5 (21.0-32.0) mmol/L BUN 15 (7.0-18.0) mg/dL Creatinine 0.8 (0.6-1.0) mg/dL Est Cr Clr Drug Dosing 65.71 mL/min Estimated GFR (MDRD) > 60.0 ml/min Glucose 129 H (74-106) mg/dL POC Glucose 151 H (60-110) mg/dL Hemoglobin A1c 7.1 H (4.5-6.2) % Calcium 8.5 (8.5-10.1) mg/dL Phosphorus 3.5 (2.6-4.7) mg/dL Magnesium 1.6 (1.5-2.0) mg/dL 06/16/17 Range/Units 10:53 WBC (4.0-11.0) K/uL RBC (4.30-5.90) M/uL Hgb (12.0-16.0) g/dL Hct (36.0-46.0) % MCV (80.0-98.0) fL MCH (27.0-32.0) pg MCHC (31.0-37.0) g/dL RDW Std Deviation (28.0-62.0) fl RDW Coeff of Daily (11.0-15.0) % Plt Count (150-400) K/uL MPV (7.40-12.00) fL Neut % (Auto) (48.0-80.0) % Lymph % (Auto) (16.0-40.0) % Starr % (Auto) (0.0-15.0) % Eos % (Auto) (0.0-7.0) % Baso % (Auto) (0.0-1.5) % Neut # (Auto) (1.4-5.7) K/uL Lymph # (Auto) (0.6-2.4) K/uL Starr # (Auto) (0.0-0.8) K/uL Eos # (Auto) (0.0-0.7) K/uL Baso # (Auto) (0.0-0.1) K/uL Nucleated RBC % /100WBC Nucleated RBCs # K/uL Sodium (136-145) mmol/L Potassium (3.5-5.1) mmol/L Chloride (98-107) mmol/L Carbon Dioxide (21.0-32.0) mmol/L BUN (7.0-18.0) mg/dL Creatinine (0.6-1.0) mg/dL Est Cr Clr Drug Dosing mL/min Estimated GFR (MDRD) ml/min Glucose (74-106) mg/dL POC Glucose 140 H (60-110) mg/dL Hemoglobin A1c (4.5-6.2) % Calcium (8.5-10.1) mg/dL Phosphorus (2.6-4.7) mg/dL Magnesium (1.5-2.0) mg/dL EFE Results - Last 24 hrs: Microbiology 06/15/17 18:35 Campylobacter Antigen Assay - Final Stool / Feces NEGATIVE [facility]AMPYLOBACTER AG Med Orders - Current: Current Medications Acetaminophen (Tylenol) 650 mg PO Q4H PRN PRN Reason: Pain (Mild 1-3)/fever Atenolol (Tenormin) 50 mg PO DAILY [facility] Last Admin: 06/16/17 09:03 Dose: 50 mg Chlorthalidone (Chlorthalidone) 25 mg PO DAILY [facility] Last Admin: 06/16/17 09:03 Dose: 25 mg Fluoxetine HCl (Prozac) 40 mg PO DAILY [facility] Last Admin: 06/16/17 09:02 Dose: 40 mg Heparin Sodium (Porcine) (Heparin Sodium) 5,000 units SUBCUT Q12H [facility] Last Admin: 06/16/17 09:00 Dose: 5,000 units Sodium Chloride (Normal Saline) 500 mls @ 999 mls/hr IV STAT [facility] Last Admin: 06/15/17 06:21 Dose: 999 mls/hr Lactated Ringer's (Ringers, Lactated) 1,000 mls @ 125 mls/hr IV ASDIRECTED [facility] Last Admin: 06/16/17 06:35 Dose: 125 mls/hr Insulin Aspart (Novolog) 0 unit SUBCUT TIDAC BEN PRN Reason: Protocol Last Admin: 06/16/17 07:12 Dose: 1 unit Omeprazole (Omeprazole) 40 mg PO ACBREAKFAST [facility] Last Admin: 06/16/17 06:36 Dose: 40 mg Ondansetron HCl (Zofran Odt) 4 mg PO Q4H PRN PRN Reason: nausea, able to take PO Ondansetron HCl (Zofran) 4 mg IVPUSH Q4H PRN PRN Reason: Nausea Potassium Chloride (Klor-Con M20) 20 meq PO DAILY [facility] Last Admin: 06/16/17 09:04 Dose: 20 meq Simvastatin (Zocor) 40 mg PO BEDTIME [facility] Last Admin: 06/15/17 20:04 Dose: 40 mg Sodium Chloride (Saline Flush) 10 ml FLUSH ASDIRECTED PRN PRN Reason: Keep Vein Open Sodium Chloride (Saline Flush) 2.5 ml FLUSH ASDIRECTED PRN PRN Reason: Keep Vein Open Discontinued Medications Bacitracin (Bacitracin Oint 1 Gm) 1 dose TOP ONETIME ONE Stop: 06/15/17 06:13 Last Admin: 06/15/17 06:24 Dose: 1 dose Magnesium Sulfate 4 gm/ Premix 100 mls @ 50 mls/hr IV ONETIME ONE Stop: 06/15/17 09:49 Last Admin: 06/15/17 10:19 Dose: 50 mls/hr Morphine Sulfate (Morphine) 2 mg IVPUSH Q2H PRN PRN Reason: Pain (severe 7-10) Stop: 06/16/17 07:52 - Exam Quality Assessment: Reports: DVT Prophylaxis. Denies: Supplemental Oxygen General: Reports: Alert, Oriented, Cooperative, No Acute Distress Lungs: Reports: Clear to Auscultation, Normal Respiratory Effort Cardiovascular: Reports: Regular Rate, Regular Rhythm GI/Abdominal Exam: Normal Bowel Sounds, Soft, Non-Tender, No Organomegaly, No Distention, No Abnormal Bruit, No Mass, Pelvis Stable Extremities: Normal Inspection, Normal Range of Motion, Non-Tender, No Pedal Edema, Normal Capillary Refill Psy/Mental Status: Reports: Alert, Normal Affect, Normal Mood *Q Meaningful Use (DIS) - VTE *Q VTE Criteria *Q: - Stroke *Q Stroke Criteria *Q: - AMI *Q AMI Criteria *Q:
--- NOTE | 2017-06-16 15:30 | CT ---
EXAM DATE: 06/15/17 PATIENT'S AGE: 77 Patient: ANNETTA SY Facility: [place], [place] Site . Site : 1940 Study: CT Head [id number]/11/2018 6:50:23 AM Ordering Physician: Doctor Quiñones Final Report: INDICATION: Pain. TECHNIQUE: CT head without IV contrast. FINDINGS: No intracranial hemorrhage, edema, or mass effect. Mild to moderate cerebral and mild cerebellar atrophy. Remainder negative. IMPRESSION: No acute intracranial disease. Chronic intracranial findings as described above. Please note that all CT scans at this facility use dose modulation, iterative reconstruction, and/or weight-based dosing when appropriate to reduce radiation dose to as low as reasonably achievable. Dictated by Fernie Salazar MD @ Jun 15 2017 7:07AM (Electronic Signature) Report Signed by Proxy. [facility]
--- NOTE | 2017-06-16 15:31 | CR ---
EXAM DATE: 06/15/17 PATIENT'S AGE: 77 Patient: ANNETTA SY Facility: [place], [place] Site . Site : 1940 Study: XRay Chest [id number]/11/2018 7:20:27 AM Ordering Physician: Doctor Quiñones Final Report: INDICATION: Shortness of breath. TECHNIQUE: AP portable chest x-ray 2 views. FINDINGS: Heart size normal. Mild elevation right hemidiaphragm. Mild pleural thickening or fibrotic change in the lung apices. No focal dense infiltrate or consolidation in either lung. Chest otherwise negative without acute disease. Dictated by Fernie Salazar MD @ Jun 15 2017 7:42AM (Electronic Signature) Report Signed by Proxy. VIK
== END 2017-06-16 11:21 | disposition home or self-care (01) ==
LOC: MW.ED 06:06 → MW.MS 06:36 → UNDODISOB 06-16 11:21
PROVIDERS: ADMIT Family Medicine; ATTEND Family Medicine
DX: R55 Syncope and collapse (principal); R19.7 Diarrhea, unspecified; I10 Essential (primary) hypertension; E78.5 Hyperlipidemia, unspecified; I25.10 Atherosclerotic heart disease of native coronary artery without angina pectoris; K21.9 Gastro-esophageal reflux disease without esophagitis; F32.9 Major depressive disorder, single episode, unspecified; E11.9 Type 2 diabetes mellitus without complications; E83.42 Hypomagnesemia; Z95.5 Presence of coronary angioplasty implant and graft; Z90.13 Acquired absence of bilateral breasts and nipples; Z79.899 Other long term (current) drug therapy; Z79.84 Long term (current) use of oral hypoglycemic drugs; Z88.8 Allergy status to other drugs, medicaments and biological substances; Z91.09 Other allergy status, other than to drugs and biological substances; Z87.891 Personal history of nicotine dependence
CPT/HCPCS: 36415; 70450; 71045; 80048; 80053; 81001; 82962; 83036; 83735; 84100; 84439; 84443; 84482; 84484; 85025; 87046; 87804; 87899; 93005; 96360; 99285; A9270; J1644; J1815; J3475; J7040; J7120; 96361; 96365; 96366; 96372; 99284; G0378